=== PATIENT | female | born 1955 | race Caucasian/White ===

== ENCOUNTER 2017-02-02 10:52 | Day surgery (SDC) | payer MEDICARE ==
[~2017-02-02] VITALS: Ht 157.5 cm; Wt 78.7 kg
--- NOTE | ~2017-02-02 | OR ---
ADMIT: 02/02/2017 RM/LOC: [facility] MR#: [id number] [address] SHANTA FRIED [id number] [place], [place] [id number] Operative/Delivery Room Report SEX: F AGE: 61 : 1955 SURGERY DATE: 02/02/2017 SURGEON: Marlon Hankins MD PREOPERATIVE DIAGNOSIS: Right-sided internal pulse generator connected to two intracranial leads at the end of its useful life expectancy with request for removal and replacement utilizing rechargeable internal pulse generator. POSTOPERATIVE DIAGNOSIS: Right-sided internal pulse generator connected to two intracranial leads at the end of its useful life expectancy with request for removal and replacement utilizing rechargeable internal pulse generator. PROCEDURE: Removal of internal pulse generator connected to two intracranial leads for Parkinson disease, deep brain stimulation with replacement utilizing rechargeable internal pulse generator for [employer] with intraoperative programming. DESCRIPTION OF PROCEDURE: After gaining informed consent, the patient was taken to the operative theater, placed under general tracheal anesthesia. A time-out was utilized to ascertain the correct site and side of surgery as well as other pertinent patient historical information. Counts were obtained at the beginning and at the end of the case with no change betwixt two. Antibiotics were given within 1 hour of incision. The wound was opened and the internal pulse generator was delineated, multiple glove changes were used throughout this case. The internal pulse generator was removed and new one was brought into the field. This was then connected and programming established with intraoperative settings placed from left contrast 3- 2+, amplitude to 3.5, pulse width 60, rate 185. On the right, case positive, 6-, amplitude 2.6, pulse width 60, rate 185 and neither electrode had impedances above threshold with the highest impedance tested on the right at #4 and #7 at 1570 ohms. Once this was all completed, multilayered closure was performed after utilizing one Ethibond to sew the internal pulse generator in place. The wound was closed with multiple layers ADMIT: 02/02/2017 RM/LOC: [facility] MR#: [id number] [address] SHANTA FRIED [address] [place] [address] Operative/Delivery Room Report SEX: F AGE: 61 : 1955 of simple interrupted 2-0 Vicryl, simple interrupted 2-0 Vicryl in the hypodermic tissue, and subcuticular 3-0 StrataFix on the skin with Steri- Strips over that. COMPLICATIONS: None. ESTIMATED BLOOD LOSS: Charted. SPECIMEN: Internal pulse generator. DISPOSITION: Extubated and taken to postanesthesia care unit. Marlon Hankins MD/ amna JOB #: [id number] CC: Marlon Hankins, Attending Physician Linda Buckley, Family Physician
== END 2017-02-02 16:20 | disposition home or self-care (01) ==
LOC: SSS 10:52
PROC: 0NH00NZ Insertion of Neurostimulator Generator into Skull, Open Approach (ICD-10-PCS; principal; 2017-02-02)
PROC: 0NP00NZ Removal of Neurostimulator Generator from Skull, Open Approach (ICD-10-PCS; principal; 2017-02-02)
DX: Z46.2 Encounter for fitting and adjustment of other devices related to nervous system and special senses (principal); G20 Parkinson's disease; Z79.899 Other long term (current) drug therapy; Z98.890 Other specified postprocedural states